=== PATIENT | female | born 1995 | race Caucasian/White ===

== ENCOUNTER 2017-06-26 15:27 | Emergency (ER) | payer BC ==
--- NOTE | 2017-06-26 15:31 | UC ---
Throat Pain/Nasal Hunter HPI - HPI Summary HPI Summary: 22 year old female presents with sore throat. Patient has a left sided retro pharyngeal abscess and I will send her to the ER. - History of Current Complaint Chief Complaint: UCRespiratory Stated Complaint: ST,SWELLING Time Seen by Provider: 06/26/17 15:29 Hx Last Menstrual Period: 09/10/14 - Allergies/Home Medications Allergies/Adverse Reactions: Allergies Allergy/AdvReac Type Severity Reaction Status Date / Time Sulfamethoxazole Allergy See Comment Verified 06/26/17 15:32 w/Trimethoprim [From Bactrim] Tretinoin Allergy See Comment Verified 06/26/17 15:32 Home Medications: Home Medications Ibuprofen [Advil] 400 mg PO 06/26/17 [History] Norgestimate-Eth Estradiol(NF) [Ortho Tri-Cyclen (NF)] 1 tab PO DAILY 06/26/17 [ History Confirmed 06/26/17] PMH/Surg Hx/FS Hx/Imm Hx Previously Healthy: Yes - Surgical History Surgical History: None - Social History Alcohol Use: None Substance Use Type: None Smoking Status (MU): Never Smoked Tobacco Review of Systems Constitutional: Negative Skin: Negative Eyes: Negative ENT: Sore Throat, Nasal Discharge Respiratory: Negative Cardiovascular: Negative Gastrointestinal: Negative Genitourinary: Negative Motor: Negative Neurovascular: Negative Musculoskeletal: Negative Neurological: Negative Psychological: Negative All Other Systems Reviewed And Are Negative: Yes Physical Exam Triage Information Reviewed: Yes Eye Exam: Normal ENT: Positive: Pharyngeal erythema, Nasal congestion, Nasal drainage, Tonsillar swelling Dental Exam: Normal Neck exam: Normal Neck: Positive: 1 Respiratory Exam: Normal Cardiovascular Exam: Normal Abdominal Exam: Normal Musculoskeletal Exam: Normal Neurological Exam: Normal Psychological Exam: Normal Skin Exam: Normal Throat Pain/Nasal Course/Dx - Differential Dx/Diagnosis Provider Diagnoses: pharyngitis Discharge - Discharge Plan Condition: Stable Disposition: AGAINST MEDICAL ADVICE Patient Education Materials: Pharyngitis (ED) Referrals: Non Staff,Doctor [Medical Doctor] -
[2017-06-26 15:32] VITALS: BP 119/98
== END 2017-06-26 16:04 | disposition left against medical advice (07) ==
LOC: UCEAST 15:27
DX: J02.9 Acute pharyngitis, unspecified (principal); Z88.2 Allergy status to sulfonamides
CPT/HCPCS: 99212; G0463

== ENCOUNTER 2017-06-26 16:09 | Emergency (ER) | payer BC ==
[2017-06-26] MEDS ORDERED: Dexamethasone IV* 4 MG/ML 1 ML (4 MG) IV SLOW PU ONE ×2 (18:15→22:27)
[2017-06-26] MEDS: NS 0.9% 1000 ML* 2,000 ML IV ONE (18:28)
[2017-06-26 18:40] LABS: Hematocrit 41 % (35-47); Hemoglobin 13.6 g/dl (12.0-16.0); Mean Corpuscular HGB Conc 34 g/dl (31-36); Mean Corpuscular Hemoglobin 30 pg (27-31); Mean Corpuscular Volume 90 fL (80-97); Mean Platelet Volume 8 um3 (7.4-10.4); Red Blood Count 4.51 10^6/ul (4.0-5.4); Red Cell Distribution Width 14 % (10.5-15); White Blood Count 17.5 10^3/ul (3.5-10.8)
[2017-06-26 18:42] LABS: Add Diff/Slide Review? Slide Review Added; Comments Flag Yes
[2017-06-26] MEDS ORDERED: Clindamycin 600 MG IVPREMIX(* 600 MG/50 ML SDV IV ONE (18:43)
[2017-06-26 18:44] LABS: Manual Entry Verification CAR0052; Mono Internal Control QC Line Present
[2017-06-26 18:53] LABS: C Reactive Protein 107.62 mg/L (< 5.00)
[2017-06-26 19:09] LABS: Add Path Review? YES; Neutrophil % 43 % (38-83); RBC Morphology Normal (Normal); Reactive Lymph % 33 % (0-6)
[2017-06-26 20:08] LABS: Albumin 3.3 g/dL (3.2-5.2); BUN/Creatinine Ratio 8.7 (8-20); Calcium 8.9 mg/dL (8.6-10.3); EGFR African American 99.1 (>60); EGFR Non-African American 77.1 (>60); Globulin 4.2 g/dL (2-4); Potassium 4.1 mmol/L (3.5-5.0); Total Protein 7.5 g/dL (6.4-8.9)
[2017-06-26] MEDS ORDERED: Iohexol 300* (CONTRAST) 10 ML SDV IV ONE (20:15)
--- NOTE | 2017-06-26 22:11 | ED ---
Throat Pain/Nasal Congestion - HPI Summary HPI Summary: 22F presents with sore throat for two weeks that got worst. She states she was diagnosed with mono. She denies any fever. She admits to inc pain with swallowing. She states the fatigue has been getting better. She states she has swelling on the side of her neck that has been there for a week. She denies any chest pain or SOB. She denies any history of mono. She has been seen at many times and neg [facility] every time. - History of Current Complaint Chief Complaint: EDThroatPain Time Seen by Provider: 06/26/17 17:55 - Allergies/Home Medications Allergies/Adverse Reactions: Allergies Allergy/AdvReac Type Severity Reaction Status Date / Time Sulfamethoxazole Allergy See Comment Verified 06/26/17 15:32 w/Trimethoprim [From Bactrim] Tretinoin Allergy See Comment Verified 06/26/17 15:32 PMH/Surg Hx/FS Hx/Imm Hx Endocrine/Hematology History: Denies: Hx Anticoagulant Therapy Cardiovascular History: Denies: Hx Hypertension Infectious Disease History: Yes Infectious Disease History: Denies: Traveled Outside the [place] in Last 30 Days - Family History Known Family History: Positive: Hypertension - Social History Alcohol Use: None Substance Use Type: Reports: None Smoking Status (MU): Never Smoked Tobacco Review of Systems Negative: Fever Positive: Sore Throat, Other - neck swelling Negative: Chest Pain Negative: Shortness Of Breath All Other Systems Reviewed And Are Negative: Yes Physical Exam Triage Information Reviewed: Yes Vital Signs On Initial Exam: Initial Vitals Temp Pulse Resp BP Pulse Ox 100.4 F 108 16 126/82 95 06/26/17 16:14 06/26/17 16:14 06/26/17 16:14 06/26/17 16:14 06/26/17 16:14 Vital Signs Reviewed: Yes Appearance: Positive: Well-Appearing Skin: Positive: Warm Head/Face: Positive: Normal Head/Face Inspection Eyes: Positive: Normal, EOMI, ANA, Conjunctiva Clear ENT: Positive: TMs normal, Tonsillar swelling - +4, Muffled/hoarse voice, Other - uvula midline, soft tissue symmetric. Negative: Tonsillar exudate, Trismus Neck: Positive: Other: - tenderness enlarged areas on side of neck L>R Respiratory/Lung Sounds: Positive: Clear to Auscultation, Breath Sounds Present Cardiovascular: Positive: Normal, RRR - Harmans Coma Scale Coma Scale Total: 15 Diagnostics - Vital Signs Vital Signs Temp Pulse Resp BP Pulse Ox 06/26/17 17:12 100 F 100 18 117/79 97 06/26/17 16:14 100.4 F 108 16 126/82 95 - Laboratory Lab Results: Lab Results 06/26/17 06/26/17 06/26/17 Range/Units 18:30 18:30 18:30 WBC 17.5 H (3.5-10.8) 10^3/ul RBC 4.51 (4.0-5.4) 10^6/ul Hgb 13.6 (12.0-16.0) g/dl Hct 41 (35-47) % MCV 90 (80-97) fL MCH 30 (27-31) pg MCHC 34 (31-36) g/dl RDW 14 (10.5-15) % Plt Count 186 (150-450) 10^3/ul MPV 8 (7.4-10.4) um3 Neut % (Auto) 33.2 L (38-83) % Lymph % (Auto) 55.0 H (25-47) % Hemphill % (Auto) 10.6 H (1-9) % Eos % (Auto) 0.1 (0-6) % Baso % (Auto) 1.1 (0-2) % Absolute Neuts (auto) 5.8 (1.5-7.7) 10^3/ul Absolute Lymphs (auto) 9.6 H (1.0-4.8) 10^3/ul Absolute Monos (auto) 1.9 H (0-0.8) 10^3/ul Absolute Eos (auto) 0 (0-0.6) 10^3/ul Absolute Basos (auto) 0.2 (0-0.2) 10^3/ul Absolute Nucleated RBC 0.13 10^3/ul Neutrophils % 43 (38-83) % Lymphocytes % 18 L (25-47) % Reactive Lymphs % 33 H (0-6) % Monocytes % 6 (0-13) % Nucleated RBC % 0.7 Normal RBC Morphology Normal (Normal) Hem Pathologist Commnt Pending Sodium 133 (133-145) mmol/L Potassium 4.1 (3.5-5.0) mmol/L Chloride 99 L (101-111) mmol/L Carbon Dioxide 26 (22-32) mmol/L Anion Gap 8 (2-11) mmol/L BUN 8 (6-24) mg/dL Creatinine 0.92 (0.51-0.95) mg/dL Est GFR ( Amer) 99.1 (>60) Est GFR (Non-Af Amer) 77.1 (>60) BUN/Creatinine Ratio 8.7 (8-20) Glucose 95 (70-100) mg/dL Lactic Acid 1.0 (0.5-2.0) mmol/L Calcium 8.9 (8.6-10.3) mg/dL Total Bilirubin 1.00 (0.2-1.0) mg/dL AST 50 H (13-39) U/L ALT 85 H (7-52) U/L Alkaline Phosphatase 309 H (34-104) U/L C-Reactive Protein 107.62 H (< 5.00) mg/L Total Protein 7.5 (6.4-8.9) g/dL Albumin 3.3 (3.2-5.2) g/dL Globulin 4.2 H (2-4) g/dL Albumin/Globulin Ratio 0.8 L (1-3) Monoscreen Positive H (Negative) Group A Strep Rapid (Negative) 06/26/17 Range/Units 18:51 WBC (3.5-10.8) 10^3/ul RBC (4.0-5.4) 10^6/ul Hgb (12.0-16.0) g/dl Hct (35-47) % MCV (80-97) fL MCH (27-31) pg MCHC (31-36) g/dl RDW (10.5-15) % Plt Count (150-450) 10^3/ul MPV (7.4-10.4) um3 Neut % (Auto) (38-83) % Lymph % (Auto) (25-47) % Hemphill % (Auto) (1-9) % Eos % (Auto) (0-6) % Baso % (Auto) (0-2) % Absolute Neuts (auto) (1.5-7.7) 10^3/ul Absolute Lymphs (auto) (1.0-4.8) 10^3/ul Absolute Monos (auto) (0-0.8) 10^3/ul Absolute Eos (auto) (0-0.6) 10^3/ul Absolute Basos (auto) (0-0.2) 10^3/ul Absolute Nucleated RBC 10^3/ul Neutrophils % (38-83) % Lymphocytes % (25-47) % Reactive Lymphs % (0-6) % Monocytes % (0-13) % Nucleated RBC % Normal RBC Morphology (Normal) Hem Pathologist Commnt Sodium (133-145) mmol/L Potassium (3.5-5.0) mmol/L Chloride (101-111) mmol/L Carbon Dioxide (22-32) mmol/L Anion Gap (2-11) mmol/L BUN (6-24) mg/dL Creatinine (0.51-0.95) mg/dL Est GFR ( Amer) (>60) Est GFR (Non-Af Amer) (>60) BUN/Creatinine Ratio (8-20) Glucose (70-100) mg/dL Lactic Acid (0.5-2.0) mmol/L Calcium (8.6-10.3) mg/dL Total Bilirubin (0.2-1.0) mg/dL AST (13-39) U/L ALT (7-52) U/L Alkaline Phosphatase (34-104) U/L C-Reactive Protein (< 5.00) mg/L Total Protein (6.4-8.9) g/dL Albumin (3.2-5.2) g/dL Globulin (2-4) g/dL Albumin/Globulin Ratio (1-3) Monoscreen (Negative) Group A Strep Rapid Negative (Negative) Result Diagrams: 06/26/17 18:30 06/26/17 18:30 Lab Statement: Any lab studies that have been ordered have been reviewed, and results considered in the medical decision making process. - CT neck CT Interpretation: Positive (See Comments) - IMPRESSION: 1. Enlarged bilateral "kissing" palatine tonsils with phlegmonous change but no drainable fluid. There is no drainable retropharyngeal soft tissue abscess. 2. Innumerable, grossly enlarged cervical chain lymph nodes consistent with the report of infectious mononucleosis. CT Interpretation Completed By: Radiologist EENT Course/Dx - Course Course Of Treatment: 22F presents with sore throat for two weeks that got worst. She states she was diagnosed with mono. She denies any fever. She admits to inc pain with swallowing. She states the fatigue has been getting better. She states she has swelling on the side of her neck that has been there for a week. She denies any chest pain or SOB. She denies any history of mono. She has been seen at many times and neg strept every time. on exam tenderness on side of neck. tonsils+4. soft palate symmetricial, no uvula deviation. labs WBC 17. gave dexamethasone. CT soft tissue show swelling from mono. discussed with dr johnson if should continue antibiotic and stated that likely just from mono so to have continue dexamethasone and antibiotic unnecessary at this point due to mono as cause. patient understands and agrees with plan. - Differential Diagnoses Differential Diagnoses: Other - peritonsillar abscess, deep soft tissue abscess , retropharyngeal abscess, mono - Diagnoses Provider Diagnoses: Mononucleosis Discharge - Discharge Plan Condition: Good Disposition: HOME Patient Education Materials: Mononucleosis (ED) Referrals: [facility] [Primary Care Provider] - Additional Instructions: Follow up with ENT back home Take steroid 8ml (1 and 1/2 teaspoon) daily for 10 days Take ibuprofen every 6 hours for pain Return to ED if develop any new or worsening symptoms
--- NOTE | 2017-06-26 22:18 | RAD ---
INDICATION: Worsening sore throat COMPARISON: None TECHNIQUE: A CT scan of the neck was performed with intravenous contrast following intravenous injection of 15 ml of Omnipaque 300 nonionic contrast. Contiguous axial sections were obtained from the skull base through the lung apices. Images were reconstructed in the coronal and sagittal planes. FINDINGS: There is enlargement of the bilateral palatine tonsils measuring 2.6 x 3 cm on the right and 2.8 x 2.9 cm and the left. At the midline the tonsils appose each other. The enlarged tonsils exhibit heterogeneous attenuation but no definite low-density fluid collection. The retropharyngeal soft tissues are not thickened. There is no drainable fluid collection. There is diffuse bilateral cervical chain lymphadenopathy. On the left the largest conglomeration of lymph nodes measures 1.5 cm in short access with and 5 cm in length. On the right the largest level 2 cervical chain lymph node measures 1.4 cm in short axis diameter (coronal image 61). The enlarged lymph nodes extend into the paraclavicular lymph nodes. The parotid and submandibular glands appear to be within normal limits. The thyroid gland appears normal. The lung apices appear clear. The visualized portion of the paranasal sinuses and mastoid air cells appear clear. No significant focal osseous abnormality is seen. IMPRESSION: 1. Enlarged bilateral "kissing" palatine tonsils with phlegmonous change but no drainable fluid. There is no drainable retropharyngeal soft tissue abscess. 2. Innumerable, grossly enlarged cervical chain lymph nodes consistent with the report of infectious mononucleosis.
[2017-06-26] MEDS ORDERED: Ketorolac INJ* 30 MG/ML 1 ML VIAL IV PUSH ONE (22:27)
[2017-06-26] MEDS ORDERED: Dexamethasone Oral Solution* 1 MG/ML 10 ML UDC (10 MG) PO ONE (22:36)
[2017-06-26 23:13] VITALS: BP 120/73
== END 2017-06-26 23:12 | disposition home or self-care (01) ==
LOC: ED 16:09
DX: B27.90 Infectious mononucleosis, unspecified without complication (principal)
CPT/HCPCS: 36415; 70491; 80053; 83605; 85025; 85060; 86140; 86308; 87651; 96361; 96374; 96375; 99283; J1100; J1885